=== PATIENT | female | born 1955 | race African-American/Black ===

== ENCOUNTER 2019-06-26 13:56 | Day surgery (SDC) | payer OTHER, SELFPAY ==
--- NOTE | 2019-06-26 | PATH_ITS ---
[facility] Accession Number: [id number] . 01 Material submitted: . gastrointestinal site - GASTRIC BIOPSIES . 02 Diagnosis: Stomach, Biopsies: Antral mucosa with no diagnostic abnormality. Negative for Helicobacter by immunohistochemistry. Negative for intestinal metaplasia. Negative for dysplasia and malignancy. V/07/01/2019 . 02 Electronically signed: . Taryn Oconnor MD, Pathologist NPI- [id number] . 01 Gross description: . GASTRIC BIOPSIES: Received in formalin are 2 fragment(s) of thrasher, soft tissue measuring 0.3 x 0.3 x 0.3 cm to 0.1 x 0.1 x 0.1 cm submitted entirely in 1 cassette(s) /CKI /CKI . 02 Microscopic: . An immunohistochemical stain was performed to evaluate for Helicobacter organisms and is negative. The control stain showed appropriate reactivity. . * This test was developed and its performance characteristics determined by [facility]. It has not been cleared or approved by the U.S. Food and Drug Administration. The FDA has determined that such clearance or approval is not necessary. This test is used for clinical purposes. It should not be regarded as investigational or for research. . 02 Pathologist provided ICD-10: R10.9 . 02 CPT . 036751, Q80302 Performed at: 01 [facility] [address], [place], [place] [id number] MD Bo Pendleton MD Phone: [phone] Performed at: 02 [facility] [address] [place], [place] [id number] MD Taryn Oconnor MD Phone: [phone]
--- NOTE | 2019-06-26 13:13 | P.OP.ENDO_ITS ---
Operative Date/Time/Diagnoses Pre-op diagnosis: See indication and findings Procedure & Clinicians Study performed: EGD and colonoscopy Same procedure as scheduled: Yes Surgeon: Houston Vega Procedure Notes Procedure in detail: After informed consent was obtained the patient was placed in left lateral decubitus position. The video upper scope was placed into the oropharynx and with the patient's health swallowed into the esophagus. The esophagus, stomach, duodenum were carefully examined. On withdrawal, retroflexed view the GE junction was performed. The scope was removed. The patient tolerated the procedure well. The patient was then turned and the colonoscope substituted. This was placed in the rectum and slowly advanced the cecum. Preparation was good. On slow withdrawal mucosa was carefully examined. The scope was removed. The patient tolerated the procedure well. Blood loss none Complications none Sedation Versed fentanyl Findings 1. Mid upper esophagus with scattered white patches consistent with monilia. 2. Wide open Schatzki's ring at GE junction 3. 3 cm hiatal hernia 4. Multiple antral erosions all small, biopsies taken to rule out Helicobacter 5. Normal duodenal bulb and sweep Colonoscopy 1. Very tortuous colon particularly sigmoid 2. Otherwise negative colonoscopy to cecum other than a few scattered diverticu la in the sigmoid colon We will be in touch regarding biopsy results. These appear to be very similar to nonsteroidal-induced or aspirin induced erosions. She should follow instructions to go back on her Lovenox and Coumadin [place].
[2019-06-26] MEDS: SODIUM CHLORIDE 0.9% 1,000 ML 42 ML IV (14:25)
[2019-06-26 14:27] VITALS: BP 149/95; PULSE 110; RESP 24; TEMP 36.6; O2SAT 100
[2019-06-26 14:30] VITALS: BMI 21.4
--- NOTE | 2019-06-26 15:02 | PM.HP.1 ---
History of Present Illness Chief complaint: [id number] COLONOSCOPY & EGD Narrative: Abdominal pain and need for screening colonoscopy. CT scan negative Patient History Medical History (Updated 06/26/19 @ 15:05 by Houston Vega MD) Anticoagulation adequate (Acute) History of DVT (deep vein thrombosis) (Acute) Lupus (Acute) Social History household members: spouse Family & Social History Social History: household members spouse Meds Home Medications Medication Instructions Recorded Confirmed Type aspirin [Aspir-Low] 81 mg PO DAILY 06/26/19 06/26/19 History enoxaparin [Lovenox] 30 mg SUBCUT BID 06/26/19 06/26/19 History felodipine 5 mg PO DAILY 06/26/19 06/26/19 History ferrous sulfate 325 mg PO DAILY 06/26/19 06/26/19 History folic acid 1 mg PO DAILY 06/26/19 06/26/19 History gabapentin 100 mg PO DAILY 06/26/19 06/26/19 History gabapentin 300 06/26/19 History gabapentin 300 mg PO DAILY 06/26/19 06/26/19 History hydrochlorothiazide 200 mg PO DAILY 06/26/19 History hydroxychloroquine 200 mg PO DAILY 06/26/19 06/26/19 History hydroxyzine HCl 25 mg PO BEDTIME 06/26/19 06/26/19 History methotrexate 2.5 meq PO BIDAC 06/26/19 06/26/19 History ranitidine HCl [Zantac 75] 150 mg PO BID 06/26/19 06/26/19 History spironolactone 75 mg PO DAILY 06/26/19 06/26/19 History warfarin 2.5 mg PO DAILY 06/26/19 06/26/19 History warfarin 5 mg PO DAILY 06/26/19 06/26/19 History Allergies Allergy/AdvReac Type Severity Reaction Status Date / Time SUNNI Inhibitors Allergy Severe THROAT Unverified 03/07/18 12:29 [SUNNI INHIBITORS] SWELLED/COULDN'T SWALLOW Nitrofuran Analogues Allergy Intermediate HEADACHE/SI Unverified 03/07/18 12:29 [NITROFURAN ANALOGUES] CK omeprazole Allergy Rash Verified 06/26/19 14:27 iodine AdvReac Verified 06/26/19 14:27 Exam Vital Signs (past 8 hours): - 06/26/19 14:27 Temperature 97.8 F Pulse Rate 110 H Respiratory Rate 24 Blood Pressure 149/95 H Pulse Oximetry 100 Oxygen Delivery Method Room Air Narrative Exam Narrative: Oropharynx free of lesions Chest clear to auscultation and percussion Cardiac exam reveals no S3 or murmur Assessment & Plan Assessment & Plan narrative: Abdominal pain need for upper endoscopy to rule out peptic disease or GERD Need for colorectal cancer screening. Last colonoscopy over 10 years ago. Chronic coumadinization. On Lovenox bridging. Will restarted appropriate interval as directed by primary care after the procedure. Risks, benefits, alternatives have been explained. Further recommendations will follow the results of the study.
[2019-06-26 17:49] VITALS: BP 119/74; PULSE 109; TEMP 36.1
[2019-06-26 17:54] VITALS: BP 133/82; PULSE 96; RESP 18; O2SAT 100
[2019-06-26 17:58] VITALS: BP 142/90; PULSE 89; RESP 16; O2SAT 100
[2019-06-26 18:20] VITALS: BP 130/85; PULSE 74; RESP 13; TEMP 36.8; O2SAT 99
== END 2019-06-26 18:34 | disposition home or self-care (01) ==
LOC: ENDO 13:59
PROVIDERS: PCP Internal Medicine; Visit Provider Internal Medicine Gastroenterology
PROC: 0DJD8ZZ Inspection of Lower Intestinal Tract, Via Natural or Artificial Opening Endoscopic (ICD-10-PCS; CPT 45378; principal; 2019-06-26 15:30)
PROC: 0DJ08ZZ Inspection of Upper Intestinal Tract, Via Natural or Artificial Opening Endoscopic (ICD-10-PCS; CPT 43235; 2019-06-26 15:30)
DX: K44.9 Diaphragmatic hernia without obstruction or gangrene (principal); Z79.01 Long term (current) use of anticoagulants; Z86.718 Personal history of other venous thrombosis and embolism; K22.2 Esophageal obstruction
CPT/HCPCS: 43239; 88305; 88342; J2704; J3010

== ENCOUNTER → 2020-12-09 09:12 | Outpatient (CLI) | payer MEDICARE, OTHER, SELFPAY ==
--- NOTE | 2020-12-09 | DI.MRI.S_ITS ---
PROCEDURE: MR HAND RT WO/W CON INDICATIONS: Neoplasm of unspecified behavior of other specified sites TECHNIQUE: Noncontrast coronal T1 spin echo and STIR, sagittal T1 spin echo with fat saturation and STIR, axial T1 spin echo and T2 fast spin echo with fat saturation. After the administration of contrast, axial/sagittal/coronal T1 spin echo with fat saturation through the hand. COMPARISON: None. FINDINGS: Image quality: Excellent. Bones: The visualized bone marrow demonstrates normal overall signal. There is moderate degeneration at the 1st carpometacarpal joint with osteophytosis, subchondral edema and cystic changes, and subchondral enhancement. Otherwise no abnormal bone marrow edema or enhancement. The overlying cortex appears intact. No bony erosions. Soft tissues: There is peritendinous edema and enhancement along the 1st flexor digitorum superficialis and flexor digitorum profundus tendons compatible with peritendinitis. There is an associated focal mild moderate intrasubstance partial thickness tear involving the flexor tendons at the level of the 1st metacarpal distally. No discrete soft tissue masses are visualized. The scanned muscles demonstrate normal overall bulk and internal signal. IMPRESSION: 1. Peritendinitis along the flexor tendons of the 1st digit. 2. Focal mild to moderate intrasubstance partial tear involving the 1st flexor tendons at the level of the 1st metacarpal distally. 2. No discrete mass identified. Dictated by: Bo Mendez M.D. on 12/09/2020 at 11:12 Approved by: Bo Mendez M.D. on 12/09/2020 at 11:46
== END ==
PROVIDERS: PCP Internal Medicine; Referring Provider Internal Medicine; Visit Provider Internal Medicine
DX: D49.89 Neoplasm of unspecified behavior of other specified sites (principal); M77.8 Other enthesopathies, not elsewhere classified
CPT/HCPCS: 73220

== ENCOUNTER → 2024-09-19 10:57 | Outpatient (CLI) | payer MEDICARE, OTHER, SELFPAY ==
--- NOTE | 2024-09-19 10:58 | DI.MG.S_ITS ---
BILATERAL DIGITAL SCREENING MAMMOGRAM 3D/2D WITH CAD: 09/19/2024 CLINICAL: Routine screening. Family history of breast cancer. Baseline exam. No prior exams were available for comparison. The breasts are heterogeneously dense, which may obscure small masses (category c / 51-75% glandular tissue). Current study was also evaluated with a Computer Aided Detection (CAD) system. No significant masses, calcifications, or other findings are seen in either breast. IMPRESSION: NEGATIVE There is no mammographic evidence of malignancy. A 1 year screening mammogram is recommended. Based on the Tyrer Cuzick model (a risk assessment model) the patient's lifetime risk is 12.9% and her 10 year risk is 7.7%. According to the ACR, ACS, and NCCN guidelines, an annual breast MRI exam along with mammogram is recommended if the patient's lifetime risk is 20% or greater. This exam was interpreted at Station ID: [id number]. NOTE: For mammograms, a report in lay terms will be sent to the patient. Approximately 15% of breast malignancies will not be visualized mammographically. In the management of a palpable breast mass, a negative mammogram must not discourage biopsy of a clinically suspicious lesion. Electronically Signed By: Martin flynn/iftikhar:09/20/2024 08:11:23 letter sent: Normal Exam ACR BI-RADS Category 1: Negative
== END ==
LOC: MAMMO 10:58
PROVIDERS: PCP Family Medicine; Referring Provider Family Medicine; Visit Provider Family Medicine
DX: Z12.31 Encounter for screening mammogram for malignant neoplasm of breast (principal); Z80.3 Family history of malignant neoplasm of breast; R92.333 Mammographic heterogeneous density, bilateral breasts
CPT/HCPCS: 77063; 77067

== ENCOUNTER 2025-08-26 08:57 | Emergency (ER) | payer MEDICARE, OTHER, SELFPAY ==
[2025-08-26 08:58] VITALS: BP 213/139; PULSE 74; RESP 14; TEMP 36.9; O2SAT 94; BMI 25.8
--- NOTE | 2025-08-26 09:02 | DI.CT.S_ITS ---
PROCEDURE: CT HEAD/BRAIN WO CON INDICATIONS: fall/injury TECHNIQUE: Noncontrast 4.5 mm thick angled axial sections acquired from the foramen magnum to the vertex, with coronal and sagittal reformats. For radiation dose reduction, the following was used: automated exposure control, adjustment of mA and/or kV according to patient size. COMPARISON: None. FINDINGS: Image quality: Diagnostic. CSF spaces: Basal cisterns are patent. No extra-axial fluid collections. The ventricles are symmetric in size and shape. Brain: No acute intracranial hemorrhage or mass effect. There is mild cerebral volume loss, with resultant ventricular and sulcal prominence. There are mild periventricular and deep white matter chronic small vessel ischemic changes. There is intracranial internal carotid artery atherosclerosis. Skull and face: Small left parietal scalp hematoma. Calvarium and visualized facial bones appear intact, without suspicious lesions. Sinuses: Visualized sinuses and mastoids are clear. IMPRESSION: Left parietal scalp hematoma. No skull fracture. No acute intracranial hemorrhage. Approved by: Shawn Russell M.D. on 08/26/2025 at 9:57
--- NOTE | 2025-08-26 09:02 | DI.CT.S_ITS ---
PROCEDURE: CT CERVICAL SPINE WO CON INDICATIONS: fall/injury TECHNIQUE: Noncontrast 3 mm thick sections acquired from the skull base to the T4 level. Sagittal and coronal reformats were then constructed. For radiation dose reduction, the following was used: automated exposure control, adjustment of mA and/or kV according to patient size. COMPARISON: None. FINDINGS: Image quality: Excellent. Bones: No acute fractures or dislocations. Visualized superior ribs are intact. Straightening of the normal cervical spine. Grade 1 anterolisthesis at C3-4 and C4-5. Grade 1 retrolisthesis at C5-6. Click C-spine. Soft tissues: Prevertebral soft tissues are normal in thickness. No paravertebral hematomas. No apical pneumothoraces. IMPRESSION: 1. No acute displaced fracture or traumatic subluxation. 2. Moderate multilevel cervical spondylosis. Approved by: Shawn Russell M.D. on 08/26/2025 at 10:00
[2025-08-26 09:03] VITALS: BP 213/139; PULSE 102; O2SAT 98
--- NOTE | 2025-08-26 09:04 | ED.HEATRA ---
HPI - Head Injury General Chief complaint: Fall Stated complaint: Fell this morning , Hit back of her head Time Seen by Provider: 08/26/25 08:58 History of Present Illness HPI Narrative: Patient brought in by her family for head injury. Patient is on warfarin for history of blood clots. Was using her wheelchair to go out through her garage awaiting for her son to pick her up. She got in a hurry and tilted her wheelchair back to go over a bump and tilted to far and fell back hitting her head. No loss of consciousness but she was dazed. No nausea or vomiting no seizures no altered mental status. Patient is awake alert oriented x4. Patient has hematoma to the occipital scalp. Denies any other pain. No limb pain no neck pain. Related Data Home Medications ?Medication ?Instructions ?Recorded ?Confirmed aspirin 81 mg tablet,delayed 81 mg PO DAILY 06/26/19 06/26/19 release (Aspir-Low) enoxaparin 30 mg/0.3 mL 30 mg SUBCUT BID 06/26/19 06/26/19 subcutaneous syringe (Lovenox) felodipine 5 mg tablet,extended 5 mg PO DAILY 06/26/19 06/26/19 release 24 hr ferrous sulfate 325 mg (65 mg 325 mg PO DAILY 06/26/19 06/26/19 iron) tablet folic acid 1 mg tablet 1 mg PO DAILY 06/26/19 06/26/19 gabapentin 100 mg capsule 100 mg PO DAILY 06/26/19 06/26/19 gabapentin 300 mg capsule 300 mg PO DAILY 06/26/19 06/26/19 gabapentin 300 mg/6 mL (6 mL) oral 300 06/26/19 solution hydrochlorothiazide 50 mg tablet 200 mg PO DAILY 06/26/19 hydroxychloroquine 200 mg tablet 200 mg PO DAILY 06/26/19 06/26/19 hydroxyzine HCl 25 mg tablet 25 mg PO BEDTIME 06/26/19 06/26/19 methotrexate 2.5 mg/mL oral 2.5 meq PO BIDAC u 06/26/19 06/26/19 solution ranitidine HCl 75 mg tablet 150 mg PO BID 06/26/19 06/26/19 (Zantac) spironolactone 25 mg tablet 75 mg PO DAILY 06/26/19 06/26/19 warfarin 2.5 mg tablet 2.5 mg PO DAILY 06/26/19 06/26/19 warfarin 5 mg tablet 5 mg PO DAILY 06/26/19 06/26/19 Allergies Allergy/AdvReac Type Severity Reaction Status Date / Time SUNNI Inhibitors (SUNNI Allergy Severe THROAT Unverified 08/26/25 09:04 INHIBITORS) SWELLED/COULDN'T SWALLOW Nitrofuran Analogues Allergy Intermediate HEADACHE/SI Unverified 08/26/25 09:04 (NITROFURAN ANALOGUES) CK omeprazole Allergy Rash Verified 08/26/25 09:04 iodine AdvReac Verified 08/26/25 09:04 Review of Systems Review of Systems Narrative: GENERAL: Negative chills, fatigue, malaise, fever, sweats. HEENT: Negative sinus pain, ear pain, sore throat RESPIRATORY: Negative dyspnea, cough CARDIOVASCULAR: Negative chest pain, palpitations GASTROINTESTINAL: Negative vomiting, nausea, abdominal pain : Negative dysuria, frequency, hematuria MUSCULOSKELETAL: Positive muscle or bony pain SKIN: Negative rash, skin lesions NEUROLOGIC: Negative weakness, numbness ROS Unobtainable: All systems reviewed & are unremarkable except as noted in HPI and below Patient History Medical History (Updated 08/26/25 @ 10:19 by Bryson Bryan MD) Anticoagulation adequate History of DVT (deep vein thrombosis) Lupus Social History household members: spouse Smoking Status: Unknown if ever smoked Exam Narrative Exam Narrative: GENERAL: in no distress, not toxic not dyspneic HEAD: Normocephalic. 4 cm diameter hematoma with tenderness but no abrasion or laceration to the upper occipital scalp. No crepitus no step-off of the skull. EYES: Pupils equal round PERRLA ENT: Mucous membranes moist. NECK: Trachea midline. No midline tenderness or step-off of the cervical thoracic or lumbar spine CARDIOVASCULAR: Regular rate and rhythm RESPIRATORY: Clear to auscultation. Breath sounds equal bilaterally. No wheezes, rales, or rhonchi. 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 NEURO: AOx4. Clear speech SKIN: Warm and dry PSYCH: Not anxious, is cooperative Initial Vital Signs Initial Vital Signs: Vital Signs Temperature 98.5 F 08/26/25 08:58 Pulse Rate 74 08/26/25 08:58 Respiratory Rate 14 08/26/25 08:58 Blood Pressure 213/139 H 08/26/25 08:58 Pulse Oximetry 94 08/26/25 08:58 Oxygen Delivery Method Room Air 08/26/25 08:58 Course Orders Ordered: Discontinued Medications Acetaminophen (Acetaminophen 325 Mg Tablet) 975 mg PO NOW ONE Stop: 08/26/25 09:04 Last Admin: 08/26/25 09:10 Dose: 975 mg Documented By: ROBINA Vital Signs Vital signs: Vital Signs - 8 hr 08/26/25 08:58 Temperature 98.5 F Pulse Rate 74 Respiratory Rate 14 Blood Pressure 213/139 H Pulse Oximetry 94 Oxygen Delivery Method Room Air MDM - Head Injury Lab Data 08/26/25 09:40 Labs: Lab Results 08/26/25 Range/Units 09:40 WBC 8.1 (4.5-11.0) X10^3/uL RBC 4.98 (4.0-5.2) X10^6/uL Hgb 13.7 (12.0-16.0) g/dL Hct 41.9 (36-46) % MCV 84.0 (80-100) fL MCH 27.6 (26-34) PG MCHC 32.8 (30-36) % RDW 15.1 H (11.6-14.8) % Plt Count 282 (150-400) X10^3/uL Neut % (Auto) 66.5 (50-75) % Lymph % (Auto) 23.8 L (25-40) % [place] % (Auto) 8.0 (3-14) % Eos % (Auto) 0.6 L (2-4) % Baso % (Auto) 1.1 (0-2) % Neut # (Auto) 5400 (8868-1482) /uL Lymph # (Auto) 1900 (9389-6021) /uL [place] # (Auto) 600 (0-900) /uL Eos # (Auto) 0 (0-450) /uL Baso # (Auto) 100 (0-100) /uL PT 34.2 H (9.4-12.5) SECONDS INR 3.1 H (0.9-1.3) APTT 51 H (25.1-36.5) SECONDS Imaging Data CT scan - head: Radiologist's Impression: [address] [address] [address] Scan Report Signed Patient: Emelina Oviedo MR#: [id number] : 1955 Acct:[id number] Age/Sex: 70 / F Date of Service: 08/26/25 Loc: ED Accession Number: [id number] Procedure: CT head/brain wo con Ordering Provider: Bryson Bryan MD PROCEDURE: CT HEAD/BRAIN WO CON INDICATIONS: fall/injury TECHNIQUE: Noncontrast 4.5 mm thick angled axial sections acquired from the foramen magnum to the vertex, with coronal and sagittal reformats. For radiation dose reduction, the following was used: automated exposure control, adjustment of mA and/or kV according to patient size. COMPARISON: None. FINDINGS: Image quality: Diagnostic. CSF spaces: Basal cisterns are patent. No extra-axial fluid collections. The ventricles are symmetric in size and shape. Brain: No acute intracranial hemorrhage or mass effect. There is mild cerebral volume loss, with resultant ventricular and sulcal prominence. There are mild periventricular and deep white matter chronic small vessel ischemic changes. There is intracranial internal carotid artery atherosclerosis. Skull and face: Small left parietal scalp hematoma. Calvarium and visualized facial bones appear intact, without suspicious lesions. Sinuses: Visualized sinuses and mastoids are clear. IMPRESSION: Left parietal scalp hematoma. No skull fracture. No acute intracranial hemorrhage. Approved by: Shawn Russell M.D. on 08/26/2025 at 9:57 CT - cervical spine: Radiologist's Impression: [address] [address] [address] Scan Report Signed Patient: Emelina Oviedo MR#: [id number] : 1955 Acct:[id number] Age/Sex: 70 / F Date of Service: 08/26/25 Loc: ED Accession Number: [id number] Procedure: CT cervical spine wo con Ordering Provider: Bryson Bryan MD PROCEDURE: CT CERVICAL SPINE WO CON INDICATIONS: fall/injury TECHNIQUE: Noncontrast 3 mm thick sections acquired from the skull base to the T4 level. Sagittal and coronal reformats were then constructed. For radiation dose reduction, the following was used: automated exposure control, adjustment of mA and/or kV according to patient size. COMPARISON: None. FINDINGS: Image quality: Excellent. Bones: No acute fractures or dislocations. Visualized superior ribs are intact. Straightening of the normal cervical spine. Grade 1 anterolisthesis at C3-4 and C4-5. Grade 1 retrolisthesis at C5-6. Click C-spine. Soft tissues: Prevertebral soft tissues are normal in thickness. No paravertebral hematomas. No apical pneumothoraces. IMPRESSION: 1. No acute displaced fracture or traumatic subluxation. 2. Moderate multilevel cervical spondylosis. Approved by: Shawn Russell M.D. on 08/26/2025 at 10:00 [facility] Narrative Medical decision making narrative: Patient brought in by her family for head injury. Patient is on warfarin for history of blood clots. Was using her wheelchair to go out through her garage awaiting for her son to pick her up. She got in a hurry and tilted her wheelchair back to go over a bump and tilted to far and fell back hitting her head. No loss of consciousness but she was dazed. No nausea or vomiting no seizures no altered mental status. Patient is awake alert oriented x4. Patient has hematoma to the occipital scalp. Denies any other pain. No limb pain no neck pain MDM After history and exam, CT head CT cervical spine CBC PT INR PTT Differential considered: Includes but not limited to scalp hematoma skull fracture intracranial bleed Medical records reviewed: No recent visit for this complaint Lab Test results independently reviewed as above. Pertinent findings: INR 3.1 Imaging studies independently reviewed: CT head scalp hematoma/soft tissue swelling, otherwise no fracture no intracranial bleed. CT cervical spine no acute finding Consultations: None indicated this time Re-evaluations: 10:17 a.m.. Reviewed results with patient and family. Patient remains awake alert oriented x4. INR 3.1 and reviewed this with her. She may need to hold her Coumadin today. Here precautions reviewed head injury instructions provided. They desire discharge home. Discussion: Appropriate for discharge home. Patient neurovascularly intact. No altered mental status. Return precautions reviewed. They desire discharge home. Diagnosis: Scalp hematoma Discharge Plan Departure Patient Disposition: Home Clinical Impression: Hematoma of scalp Qualifiers: Encounter type: initial encounter Qualified Code(s): S00.03XA - Contusion of scalp, initial encounter Instructions: DI for Hematoma (Bruise), DI for Closed Head Injury Activity Restrictions/Additional Instructions: Your exam and laboratory studies are reassuring. You may need to hold/not take your Coumadin today but resumed tomorrow. Your exam and CAT scan imaging are reassuring. Please use provided ice pack 20 minute at a time as needed for pain and swelling to the scalp. May continue Tylenol for pain. See your family doctor in a week for re-evaluation. Head injury instructions are provided for you. Prescriptions: No Action hydrochlorothiazide 50 mg Tablet 200 mg PO DAILY felodipine 5 mg Tablet Extended Release 24 Hr 5 mg PO DAILY warfarin 2.5 mg Tablet 2.5 mg PO DAILY Rx Instructions: 2 days a week aspirin [Aspir-Low] 81 mg Tablet,Delayed Release (Dr/Ec) 81 mg PO DAILY spironolactone 25 mg Tablet 75 mg PO DAILY ranitidine HCl [Zantac 75] 75 mg Tablet 150 mg PO BID ferrous sulfate 325 mg (65 mg iron) Tablet 325 mg PO DAILY warfarin 5 mg Tablet 5 mg PO DAILY Rx Instructions: five days a week gabapentin 300 mg Capsule 300 mg PO DAILY folic acid 1 mg Tablet 1 mg PO DAILY hydroxyzine HCl 25 mg Tablet 25 mg PO BEDTIME gabapentin 100 mg Capsule 100 mg PO DAILY hydroxychloroquine 200 mg Tablet 200 mg PO DAILY enoxaparin [Lovenox] 30 mg/0.3 mL Syringe 30 mg SUBCUT BID Rx Instructions: unknown dose gabapentin 300 mg/6 mL (6 mL) Solution 300 methotrexate 2.5 mg/mL Solution 2.5 meq PO BIDAC Referrals: Dennis Mancuso DO [Primary Care Provider, Family Practice] Stand Alone Forms: Patient Portal/API
[2025-08-26] MEDS: ACETAMINOPHEN 325 MG TABLET 975 MG PO (09:10)
[2025-08-26 09:15] VITALS: BP 185/105; PULSE 96; O2SAT 98
[2025-08-26 09:45] VITALS: BP 176/100; PULSE 98; O2SAT 97
[2025-08-26 09:55] LABS: Add Manual Diff / Slide Review NO; Hematocrit 41.9 % (36-46); Hemoglobin 13.7 g/dL (12.0-16.0); Lymphocytes Absolute Auto 1900 /uL (1100-4500); Mean Corpuscular HGB Conc 32.8 % (30-36); Mean Corpuscular Hemoglobin 27.6 PG (26-34); Mean Corpuscular Volume 84.0 fL (80-100); Platelet Count 282 X10^3/uL (150-400)
[2025-08-26 10:00] VITALS: PULSE 90; O2SAT 98
[2025-08-26 10:01] VITALS: BP 164/95; PULSE 93; O2SAT 98
[2025-08-26 10:02] LABS: INR 3.1 (0.9-1.3); Prothrombin Time 34.2 SECONDS (9.4-12.5)
[2025-08-26 10:05] LABS: PTT Partial Thromboplastin Tim 51 SECONDS (25.1-36.5)
== END 2025-08-26 10:31 | disposition home or self-care (01) ==
PROVIDERS: Emergency Provider Emergency Medicine; PCP Family Medicine
DX: S00.03XA Contusion of scalp, initial encounter (principal); W07.XXXA Fall from chair, initial encounter
CPT/HCPCS: 70450; 72125; 85025; 85610; 85730; 99283; 99284

== ENCOUNTER 2025-09-24 13:00 | Emergency (ER) | payer MEDICARE, OTHER, SELFPAY ==
[2025-09-24] VITALS (7 sets, daily range): BP systolic 153–196; BP diastolic 75–95; PULSE 77–104; RESP 18; TEMP 37.1; O2SAT 95–100; BMI 26.6
--- NOTE | 2025-09-24 13:26 | ED.ABDPAIN ---
HPI - Abdominal Pain General Chief Complaint: Abdominal Pain Stated Complaint: diverticulitis Flare up Time Seen by Provider: 09/24/25 13:03 Source: patient Mode of arrival: Wheelchair History of Present Illness HPI narrative: Patient here with her son. Complains 3 days of left lower quadrant pain. No black or bloody stools. No urinary complaints. Pain is constant. Sharp. Does not want anything for pain at this time. Patient states she has had diverticulitis many times in the past without admission hospital and usually treated with oral antibiotics and home observation. Related Data Home Medications ?Medication ?Instructions ?Recorded ?Confirmed aspirin 81 mg tablet,delayed 81 mg PO DAILY 06/26/19 06/26/19 release (Aspir-Low) enoxaparin 30 mg/0.3 mL 30 mg SUBCUT BID 06/26/19 06/26/19 subcutaneous syringe (Lovenox) felodipine 5 mg tablet,extended 5 mg PO DAILY 06/26/19 06/26/19 release 24 hr ferrous sulfate 325 mg (65 mg 325 mg PO DAILY 06/26/19 06/26/19 iron) tablet folic acid 1 mg tablet 1 mg PO DAILY 06/26/19 06/26/19 gabapentin 100 mg capsule 100 mg PO DAILY 06/26/19 06/26/19 gabapentin 300 mg capsule 300 mg PO DAILY 06/26/19 06/26/19 gabapentin 300 mg/6 mL (6 mL) oral 300 06/26/19 solution hydrochlorothiazide 50 mg tablet 200 mg PO DAILY 06/26/19 hydroxychloroquine 200 mg tablet 200 mg PO DAILY 06/26/19 06/26/19 hydroxyzine HCl 25 mg tablet 25 mg PO BEDTIME 06/26/19 06/26/19 methotrexate 2.5 mg/mL oral 2.5 meq PO BIDAC u 06/26/19 06/26/19 solution ranitidine HCl 75 mg tablet 150 mg PO BID 06/26/19 06/26/19 (Zantac) spironolactone 25 mg tablet 75 mg PO DAILY 06/26/19 06/26/19 warfarin 2.5 mg tablet 2.5 mg PO DAILY 06/26/19 06/26/19 warfarin 5 mg tablet 5 mg PO DAILY 06/26/19 06/26/19 Previous Rx's ?Medication ?Instructions ?Recorded amoxicillin 875 mg-potassium 1 tab PO BID #14 tabs 09/24/25 clavulanate 125 mg tablet Allergies Allergy/AdvReac Type Severity Reaction Status Date / Time SUNNI Inhibitors (SUNNI Allergy Severe THROAT Unverified 08/26/25 09:04 INHIBITORS) SWELLED/COULDN'T SWALLOW Nitrofuran Analogues Allergy Intermediate HEADACHE/SI Unverified 08/26/25 09:04 (NITROFURAN ANALOGUES) CK iodine Allergy Hives Verified 09/24/25 13:16 omeprazole Allergy Rash Verified 08/26/25 09:04 Review of Systems Review of Systems Narrative: GENERAL: Negative chills, fatigue, malaise, fever, sweats. HEENT: Negative sinus pain, ear pain, sore throat RESPIRATORY: Negative dyspnea, cough CARDIOVASCULAR: Negative chest pain, palpitations GASTROINTESTINAL: Negative vomiting, nausea, positive abdominal pain : Negative dysuria, frequency, hematuria MUSCULOSKELETAL: Negative muscle or bony pain SKIN: Negative rash, skin lesions NEUROLOGIC: Negative weakness, numbness ROS Unobtainable: All systems reviewed & are unremarkable except as noted in HPI and below Patient History Medical History (Updated 09/24/25 @ 15:00 by Bryson Bryan MD) Anticoagulation adequate History of DVT (deep vein thrombosis) Lupus Social History household members: spouse Smoking Status: Never smoker Smoking Status: Never smoker Exam Narrative Exam Narrative: GENERAL: in no distress, not toxic not dyspneic HEAD: Normocephalic. EYES: Pupils equal round ENT: Mucous membranes moist. NECK: Trachea midline. CARDIOVASCULAR: Regular rate and rhythm RESPIRATORY: Clear to auscultation. Breath sounds equal bilaterally. No wheezes, rales, or rhonchi. GASTROINTESTINAL: Abdomen soft, reproducible left lower quadrant tenderness, no guarding no rebound. No peritoneal signs. Bowel sounds are present. BACK: No flank tenderness. EXTREMITIES: No gross deformities. NEURO: AOx4. Clear speech SKIN: Warm and dry PSYCH: Not anxious, is cooperative Initial Vital Signs Initial Vital Signs: Vital Signs Pulse Oximetry 97 09/24/25 13:06 Course Orders Ordered: Discontinued Medications Amoxicillin/Clavulanate Potassium (Amoxicillin/Clav 875/125 Mg) 1 tab PO NOW ONE Stop: 09/24/25 14:57 Last Admin: 09/24/25 15:08 Dose: 1 tab Documented By: SUMAN Sodium Chloride (Normal Saline 0.9%) 500 mls @ 1,000 mls/hr IV BOLUS ONE Stop: 09/24/25 13:58 Last Admin: 09/24/25 14:05 Dose: 1,000 mls/hr Documented By: SUMAN Vital Signs Vital signs: Vital Signs - 8 hr 09/24/25 13:06 09/24/25 13:07 09/24/25 13:07 Temperature Pulse Rate 103 H Respiratory Rate Blood Pressure 196/95 H Pulse Oximetry 97 95 Oxygen Delivery Method 09/24/25 13:10 09/24/25 13:30 09/24/25 13:30 Temperature 98.8 F Pulse Rate 104 H 91 H Respiratory Rate 18 Blood Pressure 196/95 H 177/84 H Pulse Oximetry 98 99 Oxygen Delivery Method Room Air 09/24/25 13:53 09/24/25 13:53 09/24/25 14:00 Temperature Pulse Rate 77 86 Respiratory Rate Blood Pressure 195/91 H Pulse Oximetry 99 98 Oxygen Delivery Method 09/24/25 14:00 09/24/25 14:30 09/24/25 14:30 Temperature Pulse Rate 84 Respiratory Rate Blood Pressure 156/75 H 153/84 H Pulse Oximetry 100 Oxygen Delivery Method Room Air MDM - Abdominal Pain Lab Data 09/24/25 13:17 09/24/25 13:17 Labs: Lab Results 09/24/25 Range/Units 13:17 WBC 9.6 (4.5-11.0) X10^3/uL RBC 4.69 (4.0-5.2) X10^6/uL Hgb 12.8 (12.0-16.0) g/dL Hct 38.9 (36-46) % MCV 83.1 (80-100) fL MCH 27.3 (26-34) PG MCHC 32.8 (30-36) % RDW 14.6 (11.6-14.8) % Plt Count 276 (150-400) X10^3/uL Neut % (Auto) 75.6 H (50-75) % Lymph % (Auto) 16.6 L (25-40) % [place] % (Auto) 6.6 (3-14) % Eos % (Auto) 0.5 L (2-4) % Baso % (Auto) 0.7 (0-2) % Neut # (Auto) 7300 H (7372-0529) /uL Lymph # (Auto) 1600 (1064-8509) /uL [place] # (Auto) 600 (0-900) /uL Eos # (Auto) 0 (0-450) /uL Baso # (Auto) 100 (0-100) /uL Sodium 136 L (137-145) mmol/L Potassium 4.5 (3.4-5.1) mmol/L Chloride 104 (98-107) mmol/L Carbon Dioxide 23 (22-32) mmol/L BUN 9 (7-17) mg/dL Creatinine 0.69 (0.52-1.04) mg/dL Estimated GFR > 60 (>60) mL/min BUN/Creatinine Ratio 13.0 (6-22) Glucose 112 H (70-99) mg/dL Calcium 9.0 (8.4-10.2) mg/dL Total Bilirubin 0.9 (0.2-1.3) mg/dL AST 44 H (14-36) IU/L ALT 27 (<35) IU/L Alkaline Phosphatase 86 (38-126) U/L Total Protein 8.8 H (6.3-8.2) g/dL Albumin 4.6 (3.5-5.0) g/dL Globulin 4.2 H (1.7-4.1) g/dL Albumin/Globulin Ratio 1.1 (1.0-2.8) Lipase 60 (23-300) U/L Imaging Data CT scan - abdomen/pelvis: Radiologist's Impression: [address] [address] [address] Scan Report Signed Patient: Emelina Oviedo MR#: [id number] : 1955 Acct:[id number] Age/Sex: 70 / F Date of Service: 09/24/25 Loc: ED Accession Number: [id number] Procedure: CT abdomen pelvis wo con Ordering Provider: Bryson Bryan MD PROCEDURE: CT ABDOMEN PELVIS WO CON INDICATIONS: Left lower quadrant pain TECHNIQUE: CT of the abdomen and pelvis was obtained without intravenous contrast. Coronal and sagittal reformats were performed. For radiation dose reduction, the following was used: automated exposure control, adjustment of mA and/or kV according to patient size. COMPARISON: None. FINDINGS: Image quality: Diagnostic. Lower Chest: Moderate hiatal hernia. ABDOMEN: Liver: Moderate to severe hepatic steatosis. Gallbladder: Absent. Biliary ducts: No biliary dilation. Pancreas: No ductal dilation. Spleen: Size is within normal limits. Adrenal Glands: No adrenal nodules. Kidneys and Ureters: No hydronephrosis. No contour-deforming mass. Stomach and Bowel: There is diverticulitis of the proximal sigmoid colon, with associated wall thickening and pericolonic fat stranding. No evidence of perforation. Peritoneum: No abnormal intraperitoneal fluid. No free air. Ventral Wall: No significant hernia. Abdominal Nodes: No retroperitoneal or mesenteric adenopathy by size criteria. Vessels: Aorta and inferior vena cava are normal in size. PELVIS: Pelvic Organs: Unremarkable. Bladder: Unremarkable. Pelvic Nodes: No enlarged lymph nodes. Miscellaneous: No inguinal hernias are seen. Bones: No aggressive osseous abnormality. IMPRESSION: Acute diverticulitis of the proximal sigmoid colon, without perforation. Dictated by: Rush Medley M.D. on 09/24/2025 at 14:23 Approved by: Rush Medley M.D. on 09/24/2025 at 14:25 MDM Narrative Medical decision making narrative: Patient here with her son. Complains 3 days of left lower quadrant pain. No black or bloody stools. No urinary complaints. Pain is constant. Sharp. Does not want anything for pain at this time. Patient states she has had diverticulitis many times in the past without admission hospital and usually treated with oral antibiotics and home observation. MDM After history and exam, CBC CMP CT abdomen pelvis normal saline Differential considered: Includes but not limited to diverticulitis diverticulosis UTI pyelonephritis kidney stone Medical records reviewed: No recent visit for this complaint Lab Test results independently reviewed as above. Pertinent findings: WBC 9.6 hemoglobin 12.8 Imaging studies independently reviewed: CT abdomen pelvis acute diverticulitis Consultations: None indicated at this time Re-evaluations: 2:59 p.m.. Updated patient and son results. Pain is controlled she does not want anything for pain. Augmentin will be started and prescriptions sent to your pharmacy to continue tomorrow. Return precautions reviewed. She desires discharge home Discussion: Appropriate for discharge home exam is reassuring. Return precautions reviewed with patient and son. Pain is controlled. Antibiotics have been started. They desire discharge home. Diagnosis: Acute diverticulitis Discharge Plan Departure Patient Disposition: Home Clinical Impression: Diverticulitis Instructions: DI for Diverticulitis Activity Restrictions/Additional Instructions: Antibiotics have been started to treat for your diverticulitis. You may continue home medications. See your family doctor next week for re-evaluation. Prescription for antibiotic has been sent to your pharmacy to [facility] [employer] pain continue tomorrow morning. May continue Tylenol for pain. Return if worse if any questions or concerns. Your laboratory studies are reassuring. Prescriptions: New amoxicillin-pot clavulanate 875-125 mg tablet 1 tab PO BID Qty: 14 0RF No Action hydrochlorothiazide 50 mg Tablet 200 mg PO DAILY felodipine 5 mg Tablet Extended Release 24 Hr 5 mg PO DAILY warfarin 2.5 mg Tablet 2.5 mg PO DAILY Rx Instructions: 2 days a week aspirin [Aspir-Low] 81 mg Tablet,Delayed Release (Dr/Ec) 81 mg PO DAILY spironolactone 25 mg Tablet 75 mg PO DAILY ranitidine HCl [Zantac 75] 75 mg Tablet 150 mg PO BID ferrous sulfate 325 mg (65 mg iron) Tablet 325 mg PO DAILY warfarin 5 mg Tablet 5 mg PO DAILY Rx Instructions: five days a week gabapentin 300 mg Capsule 300 mg PO DAILY folic acid 1 mg Tablet 1 mg PO DAILY hydroxyzine HCl 25 mg Tablet 25 mg PO BEDTIME gabapentin 100 mg Capsule 100 mg PO DAILY hydroxychloroquine 200 mg Tablet 200 mg PO DAILY enoxaparin [Lovenox] 30 mg/0.3 mL Syringe 30 mg SUBCUT BID Rx Instructions: unknown dose gabapentin 300 mg/6 mL (6 mL) Solution 300 methotrexate 2.5 mg/mL Solution 2.5 meq PO BIDAC Referrals: Dennis Mancuso DO [Primary Care Provider, Family Practice] Stand Alone Forms: Patient Portal/API
--- NOTE | 2025-09-24 13:30 | DI.CT.S_ITS ---
PROCEDURE: CT ABDOMEN PELVIS WO CON INDICATIONS: Left lower quadrant pain TECHNIQUE: CT of the abdomen and pelvis was obtained without intravenous contrast. Coronal and sagittal reformats were performed. For radiation dose reduction, the following was used: automated exposure control, adjustment of mA and/or kV according to patient size. COMPARISON: None. FINDINGS: Image quality: Diagnostic. Lower Chest: Moderate hiatal hernia. ABDOMEN: Liver: Moderate to severe hepatic steatosis. Gallbladder: Absent. Biliary ducts: No biliary dilation. Pancreas: No ductal dilation. Spleen: Size is within normal limits. Adrenal Glands: No adrenal nodules. Kidneys and Ureters: No hydronephrosis. No contour-deforming mass. Stomach and Bowel: There is diverticulitis of the proximal sigmoid colon, with associated wall thickening and pericolonic fat stranding. No evidence of perforation. Peritoneum: No abnormal intraperitoneal fluid. No free air. Ventral Wall: No significant hernia. Abdominal Nodes: No retroperitoneal or mesenteric adenopathy by size criteria. Vessels: Aorta and inferior vena cava are normal in size. PELVIS: Pelvic Organs: Unremarkable. Bladder: Unremarkable. Pelvic Nodes: No enlarged lymph nodes. Miscellaneous: No inguinal hernias are seen. Bones: No aggressive osseous abnormality. IMPRESSION: Acute diverticulitis of the proximal sigmoid colon, without perforation. Dictated by: Rush Medley M.D. on 09/24/2025 at 14:23 Approved by: Rush Medley M.D. on 09/24/2025 at 14:25
[2025-09-24 13:37] LABS: Add Manual Diff / Slide Review NO; Hematocrit 38.9 % (36-46); Hemoglobin 12.8 g/dL (12.0-16.0); Lymphocytes Absolute Auto 1600 /uL (1100-4500); Mean Corpuscular HGB Conc 32.8 % (30-36); Mean Corpuscular Hemoglobin 27.3 PG (26-34); Mean Corpuscular Volume 83.1 fL (80-100); Platelet Count 276 X10^3/uL (150-400)
[2025-09-24 13:42] LABS: Alanine Aminotransferase 27 IU/L (<35); Albumin 4.6 g/dL (3.5-5.0); Albumin Globulin Ratio 1.1 (1.0-2.8); Alkaline Phosphatase 86 U/L (38-126); Blood Urea Nitrogen 9 mg/dL (7-17); Calcium 9.0 mg/dL (8.4-10.2); Carbon Dioxide 23 mmol/L (22-32); Chloride 104 mmol/L (98-107); Estimated Glomerular Filt Rate > 60 mL/min (>60); Globulin 4.2 g/dL (1.7-4.1); Glucose 112 mg/dL (70-99); HEMOLYSIS 128 (0-50); Lipase 60 U/L (23-300); Potassium 4.5 mmol/L (3.4-5.1); Sodium 136 mmol/L (137-145); Total Protein 8.8 g/dL (6.3-8.2)
[2025-09-24] MEDS: SODIUM CHLORIDE 0.9% 500 ML 1000 ML IV (14:05)
[2025-09-24] MEDS: AMOXICILLIN/CLAV 875/125 MG 1 TAB PO (15:08)
== END 2025-09-24 15:24 | disposition home or self-care (01) ==
PROVIDERS: Emergency Provider Emergency Medicine; PCP Family Medicine
DX: K57.32 Diverticulitis of large intestine without perforation or abscess without bleeding (principal)
CPT/HCPCS: 36415; 74176; 80053; 83690; 85025; 99284; J7040